=== PATIENT | male | born 1950 | race Caucasian/White ===

== ENCOUNTER → 2018-06-03 | Outpatient (CLI) | payer OTHER ==
[~2018-06-03] MED LIST: GADOBUTROL 10 ML VIAL IVP ONE
== END ==
LOC: FIMAGING 15:54
PROVIDERS: ATTEND Urology
DX: N42.9 Disorder of prostate, unspecified (principal)
CPT/HCPCS: 72197; 76377; A9585; 82565-PO

== ENCOUNTER → 2018-07-15 | Day surgery (SDC) | payer OTHER | END | disposition home or self-care (01) | LOC: BMCIMAGING 07:33 | PROVIDERS: ATTEND Urology | PROC: BV49ZZZ Ultrasonography of Prostate and Seminal Vesicles (ICD-10-PCS; principal; 2018-07-15) | DX: N42.89 Other specified disorders of prostate (principal) ==